=== PATIENT | female | born 1995 | race African-American/Black ===

== ENCOUNTER 2021-10-24 04:25 | Emergency (ER) | payer MEDICAID ==
[~2021-10-24] VITALS: Ht 172.7 cm; Wt 80.0 kg
[2021-10-24 05:28] VITALS: BP 109/72
== END 2021-10-24 12:26 | disposition home or self-care (01) ==
LOC: ER 04:25
DX: U07.1 COVID-19 (principal)
CPT/HCPCS: 87426; 99283